=== PATIENT | female | born 1955 | race Hispanic/Latino ===

== ENCOUNTER 2017-01-04 10:03 | Outpatient (CLI) | payer OTHER ==
--- NOTE | 2017-01-05 08:47 | Mammography Report ---
BILATERAL DIGITAL SCREENING MAMMOGRAM with CAD: 01/04/17 10:03:00 CLINICAL: Routine screening. COMPARISON:01/13/15 FINDINGS: The breasts are almost entirely fatty. No mass, architectural distortion or suspicious calcifications. IMPRESSION: No mammographic evidence of malignancy. BI-RADS CATEGORY: 1 - - Negative RECOMMENDATION: Routine mammographic screening in one year. COMMENT: Patient follow-up letters are generated by our [employer] application.
== END 2017-01-04 10:04 | disposition home or self-care (01) ==
LOC: SPVWC 10:03
PROVIDERS: ATTEND Internal Medicine
DX: Z12.31 Encounter for screening mammogram for malignant neoplasm of breast (principal); F41.9 Anxiety disorder, unspecified
CPT/HCPCS: 77067; G0202

== ENCOUNTER 2017-04-06 09:02 | Emergency (ER) | payer OTHER ==
[2017-04-06 09:58] VITALS: BP 156/76
[2017-04-06] MEDS ORDERED: BENADRYL PO ONE (10:13)
[2017-04-06] MEDS ORDERED: PEPCID PO ONE (10:13)
[2017-04-06] MEDS ORDERED: DECADRON IM ONE (10:13)
--- NOTE | 2017-04-06 10:17 | Emergency Department Report ---
ED Rash HPI - HPI Chief Complaint: Skin Rash Stated Complaint: ITCHING ALL OVER Time Seen by Provider: 04/06/17 10:07 Duration: 3 Days Location: Chest, Abdomen, Upper Extremities Suspected Cause: Other (rash) Rash Symptoms: Yes Itching, Yes Blistering, No Facial Swelling, No Tongue/Oral Swelling, No Breathing Difficulties, No Choking Sensation, No Wheezing/Dyspnea, No Peeling, No Fever, No Lightheaded, No Malaise, No Myalgias Severity: mild ED Review of Systems ROS: Stated complaint: ITCHING ALL OVER Other details as noted in HPI Comment: All other systems reviewed and negative Constitutional: no symptoms reported, see HPI. denies: chills Eyes: as per HPI. denies: eye pain ENT: as per HPI. denies: ear pain, throat pain Respiratory: no symptoms reported, see HPI. denies: cough, orthopnea Cardiovascular: as per HPI. denies: chest pain, palpitations, dyspnea on exertion, orthopnea Endocrine: no symptoms reported, see HPI. denies: excessive sweating, flushing Gastrointestinal: as per HPI. denies: abdominal pain, nausea, vomiting Genitourinary: as per HPI. denies: urgency, dysuria Musculoskeletal: as per HPI. denies: back pain Skin: as per HPI, rash, pruritus. denies: lesions Neurological: as per HPI. denies: headache, weakness Psychiatric: as per HPI. denies: anxiety, depression Hematological/Lymphatic: as per HPI. denies: easy bleeding ED Past Medical Hx - Past Medical History Previous Medical History?: Yes Hx GERD: Yes Hx Arthritis: Yes - Surgical History Past Surgical History?: Yes Additional Surgical History: LUMP REMOVAL - Social History Smoking Status: Never Smoker Substance Use Type: None - Medications Home Medications: Home Medications Medication Instructions Recorded Confirmed Last Taken Type HYDROcodone/APAP 5-325 [Boyce 1 - 2 each PO Q4HR PRN #30 tablet 02/05/14 Unknown Rx 5/325] traMADol [Ultram] 50 mg PO Q4HR PRN #20 tablet 05/13/16 Unknown Rx methylPREDNISolone [Medrol] 4 mg PO DAILY #1 tab.ds.pk 04/06/17 Unknown Rx Rash Exam - Exam General: Vital signs noted. No distress. Alert and acting appropriately. HEENT: No Periorbital Edema, No Conjuctival Injection, No Chemosis, No Perioral Edema, No Tongue Edema, No Uvular Edema, No Compromised Airway, No Drooling Lungs: Yes Good Air Exchange, No Wheezes, No Ronchi, No Stridor, No Cough, No Labored Respirations, No Retractions, No Use of Accessory Muscles, No Other Abnormal Lung Sounds Heart: Yes Regular, No Murmur Skin: Yes Maculopapular Rash, No Urticarial Rash, No Morbilliform rash, No Bulla (e), No Excoriations, No Weeping, No Tenderness, No Erythema, No Edema, No Encrustations Other: Positive: Abdomen Normal, Neurologic Normal, Musculoskeletal Normal ED Course Vital Signs 04/06/17 09:54 Temperature 98.3 F Pulse Rate 72 Respiratory 16 Rate Blood Pressure 156/76 O2 Sat by Pulse 98 Oximetry - Reevaluation(s) Reevaluation #1: 04/06/17 rash p working in yard a few days ago ED Medical Decision Making - Medical Decision Making rash p working in yard multiple areas consistent w poison radha Critical care attestation.: If time is entered above; I have spent that time in minutes in the direct care of this critically ill patient, excluding procedure time. ED Disposition Clinical Impression: Poison radha Disposition: DC-01 TO HOME OR SELFCARE Is pt being admited?: No Does the pt Need Aspirin: No Condition: Stable Instructions: Poison Radha (ED) Additional Instructions: do not scratch benadryl over the counter calamine is fine for comfort pepcid 20 mg daily for 5 days for the itching will also help cooll compresses Prescriptions: methylPREDNISolone [Medrol] 4 mg PO DAILY #1 tab.ds.pk Referrals: BÁRBARA ESPARZA MD [Primary Care Provider] - 3-5 Days SOULEYMANE OBREGON MD [Staff Physician] - 3-5 Days Time of Disposition: 10:15
== END 2017-04-06 10:35 | disposition home or self-care (01) ==
LOC: ED 09:02
DX: L23.7 Allergic contact dermatitis due to plants, except food (principal); K21.9 Gastro-esophageal reflux disease without esophagitis; M19.90 Unspecified osteoarthritis, unspecified site
CPT/HCPCS: 96372; 99282; J1100

== ENCOUNTER 2018-01-15 09:58 | Outpatient (CLI) | payer OTHER ==
--- NOTE | 2018-01-15 14:56 | Mammography Report ---
BILATERAL DIGITAL SCREENING MAMMOGRAM with CAD: 01/15/18 09:58:00 CLINICAL: Routine screening. COMPARISON:01/04/17 FINDINGS: The breasts are mostly fatty. A left retroareolar asymmetry on both views requires additional imaging.No architectural distortion or suspicious calcifications.The right breast is negative. IMPRESSION: Left focal asymmetry requiring further workup. BI-RADS CATEGORY: 0 -- Additional Imaging Evaluation Required RECOMMENDATION: Recall for left spot magnification ML and CC nipple views and left breast ultrasound if needed. ACR BI-RADS MAMMOGRAPHIC CODES: 0 = Needs additional imaging evaluation; 1 = Negative; 2 = Benign; 3 = Probably benign; 4 = Suspicious; 5 = Malignant; 6 = Known biopsy-proven malignancy COMMENT: 1. Dense breast tissue, i.e., adenosis, fibrocystic changes, etc., may obscure an underlying neoplasm. 2. Approximately 10% of cancers are not detected with mammography. 3. A negative mammography report should not delay biopsy if a clinically suspicious mass is present. COMMENT: Patient follow-up letters are generated via our [employer] application.
== END 2018-01-15 09:59 | disposition home or self-care (01) ==
LOC: SPVWC 09:58
PROVIDERS: ATTEND Internal Medicine
DX: Z12.31 Encounter for screening mammogram for malignant neoplasm of breast (principal)
CPT/HCPCS: 77067

== ENCOUNTER 2019-01-15 09:10 | Outpatient (CLI) | payer OTHER ==
--- NOTE | 2019-01-15 15:02 | Mammography Report ---
BILATERAL DIGITAL SCREENING MAMMOGRAM with CAD: 01/15/19 09:10:00 CLINICAL: Routine screening. COMPARISON: 01/05/18 and 01/04/17 FINDINGS: There are bilateral scattered areas of fibroglandular density.No mass, architectural distortion or suspicious calcifications. IMPRESSION: No mammographic evidence of malignancy. BI-RADS CATEGORY: 1 -- Negative RECOMMENDATION: Routine mammographic screening in one year. COMMENT: Patient follow-up letters are generated by our [employer] application.
== END 2019-01-15 09:11 | disposition home or self-care (01) ==
LOC: SPVWC 09:10
PROVIDERS: ATTEND Internal Medicine
DX: Z12.31 Encounter for screening mammogram for malignant neoplasm of breast (principal); K21.9 Gastro-esophageal reflux disease without esophagitis
CPT/HCPCS: 77067

== ENCOUNTER 2019-04-06 17:28 | Emergency (ER) | payer OTHER ==
[2019-04-06] MEDS ORDERED: DELTASONE PO ONE (19:36)
[2019-04-06] MEDS ORDERED: TYLENOL PO ONE (19:36)
[2019-04-06] MEDS ORDERED: ULTRAM PO ONE (19:36)
--- NOTE | 2019-04-06 20:17 | Emergency Department Report ---
ED Extremity Problem HPI - General Chief complaint: Shoulder Injury Stated complaint: L SHOULDER PAIN Source: patient Mode of arrival: Ambulatory Limitations: No Limitations - History of Present Illness Initial comments: Patient is a 63-year-old female with past medical history of chronic degenerative joint disease presents to the ED for an acute onset persistent right shoulder pain with range of motion, worse in the last 12 hours. Patient states that she described the flow and moved furniture around 2 days ago and from then on the right shoulder pain has been worsening. Patient denies fall, traumatic injury, chest pain, neck pain, dizziness, abdominal pain, diaphoresis, headache, numbness and tingling or weakness of right arm, shortness of breath, change in vision or palpitations. MD Complaint: extremity pain (right shoulder), joint paint (right shoulder) -: Sudden, days(s) (2) Location: right, upper extremity (shoulder) History of Same: Yes -: Yes arthralgia (chronic polyarticular osteoarthritis), No fever, No associated dyspnea, No associated chest pain Severity scale (0 -10): 7 Quality: aching, sharp, constant Consistency: constant Improves with: rest Worsens with: weight bearing, exertion, palpation Associated Symptoms: denies other symptoms, arthralgias. denies: chest pain, shortness of breath, fever, myalgias, rash - Related Data Previous Rx's Medication Instructions Recorded Last Taken Type HYDROcodone/APAP 5-325 [Wheeler 1 - 2 each PO Q4HR PRN #30 tablet 02/05/14 Unknown Rx 5/325] traMADol [Ultram] 50 mg PO Q4HR PRN #20 tablet 05/13/16 Unknown Rx methylPREDNISolone [Medrol] 4 mg PO DAILY #1 tab.ds.pk 04/06/17 Unknown Rx Meloxicam [Mobic] 15 mg PO DAILY #30 tablet 04/06/19 Unknown Rx tiZANidine [Zanaflex 4mg TAB] 4 mg PO Q8H PRN #15 tablet 04/06/19 Unknown Rx traMADol [Ultram] 50 mg PO Q6HR PRN #15 tablet 04/06/19 Unknown Rx Allergies Allergy/AdvReac Type Severity Reaction Status Date / Time contrast dye AdvReac Shortness Uncoded 04/06/17 09:59 of Breath ED Review of Systems ROS: Stated complaint: L SHOULDER PAIN Other details as noted in HPI Constitutional: denies: chills, fever Eyes: denies: eye pain, eye discharge, vision change ENT: denies: ear pain, throat pain Respiratory: denies: cough, shortness of breath, wheezing Cardiovascular: denies: chest pain, palpitations Endocrine: no symptoms reported Gastrointestinal: denies: abdominal pain, nausea, diarrhea Genitourinary: denies: urgency, dysuria, discharge Musculoskeletal: arthralgia (RIGHT HSOULDER), other (RIGHT SHOULDER PAIN). denies: back pain, joint swelling Skin: denies: rash, lesions Neurological: denies: headache, weakness, paresthesias Psychiatric: denies: anxiety, depression Hematological/Lymphatic: denies: easy bleeding, easy bruising ED Past Medical Hx - Past Medical History Previous Medical History?: Yes Hx GERD: Yes Hx Arthritis: Yes - Surgical History Past Surgical History?: No Additional Surgical History: LUMP REMOVAL - Social History Smoking Status: Unknown if ever smoked Substance Use Type: None - Medications Home Medications: Home Medications Medication Instructions Recorded Confirmed Last Taken Type HYDROcodone/APAP 5-325 [Wheeler 1 - 2 each PO Q4HR PRN #30 tablet 02/05/14 Unknown Rx 5/325] traMADol [Ultram] 50 mg PO Q4HR PRN #20 tablet 05/13/16 Unknown Rx methylPREDNISolone [Medrol] 4 mg PO DAILY #1 tab.ds.pk 04/06/17 Unknown Rx Meloxicam [Mobic] 15 mg PO DAILY #30 tablet 04/06/19 Unknown Rx tiZANidine [Zanaflex 4mg TAB] 4 mg PO Q8H PRN #15 tablet 04/06/19 Unknown Rx traMADol [Ultram] 50 mg PO Q6HR PRN #15 tablet 04/06/19 Unknown Rx ED Physical Exam - General Limitations: No Limitations General appearance: alert, in no apparent distress - Head Head exam: Present: atraumatic, normocephalic, normal inspection - Eye Eye exam: Present: normal appearance, PERRL, EOMI Pupils: Present: normal accommodation - ENT ENT exam: Present: normal exam, normal orophraynx, mucous membranes moist, TM's normal bilaterally, normal external ear exam - Neck Neck exam: Present: normal inspection, full ROM. Absent: tenderness, lymphadenopathy - Respiratory Respiratory exam: Present: normal lung sounds bilaterally. Absent: respiratory distress, wheezes, stridor, chest wall tenderness - Cardiovascular Cardiovascular Exam: Present: regular rate, normal rhythm, normal heart sounds. Absent: systolic murmur, diastolic murmur, rubs, gallop - GI/Abdominal GI/Abdominal exam: Present: soft, normal bowel sounds. Absent: tenderness, guarding, rebound, hyperactive bowel sounds, hypoactive bowel sounds, organomegaly - Rectal Rectal exam: Present: deferred - Extremities Exam Extremities exam: Present: normal inspection, tenderness (Right shoulder tenderness with limited ROM due to pain), normal capillary refill. Absent: full ROM (due to pain on right shoulder) - Back Exam Back exam: Present: normal inspection, full ROM. Absent: CVA tenderness (R), CVA tenderness (L), muscle spasm, paraspinal tenderness, vertebral tenderness - Neurological Exam Neurological exam: Present: alert, oriented X3, CN II-XII intact, normal gait, reflexes normal - Psychiatric Psychiatric exam: Present: normal affect, normal mood - Skin Skin exam: Present: warm, dry, intact, normal color. Absent: rash ED Course Vital Signs 04/06/19 04/06/19 04/06/19 17:37 19:48 19:51 Temperature 98.0 F Pulse Rate 80 Respiratory 18 18 16 Rate Blood Pressure 128/65 O2 Sat by Pulse 98 Oximetry - Reevaluation(s) Reevaluation #1: 04/06/19 20:25 63-year-old female with a history of chronic osteoarthritis presents to the ED with symptomatic pain after scrubbing the floors and lifting furniture at home 2 days ago. In the ED, patient is alert and oriented 3 and is in distress with normal vital signs. Patient was treated for pain in the ED and right shoulder x-ray shows no acute fractures or subluxations. Patient's symptoms are likely due to tendinitis and osteoarthritis of the right shoulder due to heavy lifting and exertion. Patient was sent home on pain medication and advised to follow-up with her primary care physician in 7-10 days for reevaluation or return immediately if symptoms get worse. ED Medical Decision Making - Radiology Data Radiology results: report reviewed, image reviewed Right shoulder x-ray shows no acute fractures or subluxations. - Medical Decision Making This is a 63-year-old female who presents to ED with right shoulder pain. Shoulder x-ray shows no acute fractures or subluxations. Patient's pain is wor se with active range of motion of the right shoulder joint consistent with tendinitis or chronic osteoarthritis exacerbation. Patient was treated in the ED and discharged home on pain medications and advised to follow-up with her primary care physician in 7-10 days for reevaluation or return to the ED immediately if symptoms get worse. - Differential Diagnosis chronic osteoarthritis; Right shoulder tendonitis; Muscle strain Critical care attestation.: If time is entered above; I have spent that time in minutes in the direct care of this critically ill patient, excluding procedure time. ED Disposition Clinical Impression: Right shoulder tendonitis, Primary localized osteoarthrosis of right shoulder Muscle strain of right shoulder Qualifiers: Encounter type: initial encounter Qualified Code(s): S46.911A - Strain of un specified muscle, fascia and tendon at shoulder and upper arm level, right arm, initial encounter Disposition: TO HOME OR SELFCARE Is pt being admited?: No Does the pt Need Aspirin: No Condition: Stable Instructions: Muscle Strain (ED), Osteoarthritis (ED), Tendinitis (ED) Additional Instructions: Take medications with food, drink plenty of fluids and follow-up with your Primary Care Physician in 7-10 days for reevaluation. Return to the ED immediately if symptoms get worse. Prescriptions: Meloxicam [Mobic] 15 mg PO DAILY #30 tablet traMADol [Ultram] 50 mg PO Q6HR PRN #15 tablet PRN Reason: Pain tiZANidine [Zanaflex 4mg TAB] 4 mg PO Q8H PRN #15 tablet PRN Reason: Muscle Spasm Referrals: [facility] [Outside] - 3-5 Days Time of Disposition: 20:15 Print Language: YORUBA
[2019-04-06 20:37] VITALS: BP 133/68
== END 2019-04-06 20:38 | disposition home or self-care (01) ==
LOC: ED 17:28
DX: S46.911A Strain of unspecified muscle, fascia and tendon at shoulder and upper arm level, right arm, initial encounter (principal); M75.91 Shoulder lesion, unspecified, right shoulder; M19.011 Primary osteoarthritis, right shoulder; K21.9 Gastro-esophageal reflux disease without esophagitis; Z91.041 Radiographic dye allergy status; Z79.899 Other long term (current) drug therapy; X50.0XXA Overexertion from strenuous movement or load, initial encounter; Y93.89 Activity, other specified; Y92.89 Other specified places as the place of occurrence of the external cause; Y99.8 Other external cause status
CPT/HCPCS: 99282; J7512